=== PATIENT | male | born 1980 | race Caucasian/White ===

== ENCOUNTER 2019-12-28 16:47 | Emergency (ER) | payer MEDICAID, OTHER ==
[~2019-12-28] VITALS: Ht 172.7 cm; Wt 65.0 kg
[2019-12-28 16:59] VITALS: BP 116/65
[2019-12-28] MEDS ORDERED: IBUPROFEN 600MG TABLET PO ONE (19:15)
== END 2019-12-28 19:51 | disposition home or self-care (01) ==
LOC: ER 16:47
DX: R07.81 Pleurodynia (principal)
CPT/HCPCS: 71045; 99283